=== PATIENT | male | born 1975 | race Caucasian/White ===

== ENCOUNTER 2017-04-10 17:42 | Emergency (ER) | payer BC ==
[~2017-04-10] VITALS: Ht 190.5 cm; Wt 88.5 kg
[~2017-04-10 17:42] MED LIST: KEFLEX 500MG.500 MG PO; LORTAB 5/500 501 TAB PO; NAPROSYN 500MG500 MG PO; VALIUM 5MG TABLE5 MG PO
--- OUTSIDE RECORDS SUMMARY | 2017-04-10 17:49 | External Medical Summary Rpt | CCD ---
Author Author YUDELKA Address Unknown Phone [email or web address] Purpose Continuity of Care Document - through 2016
--- OUTSIDE RECORDS SUMMARY | 2017-04-10 17:49 | External Medical Summary Rpt | CCD ---
Demographics Preferred Language Bel[place] Marital Status Unknown Buddhist Affiliation Unknown Race Unknown Ethnic Group Unknown Author Author , YUDELKA JHA Address Unknown Phone Immunization No patient found.
--- OUTSIDE RECORDS SUMMARY | 2017-04-10 17:49 | External Medical Summary Rpt | CCD ---
Author Author [facility] Organization [facility] Address Unknown Phone Unavailable Purpose Continuity of Care Document - through 2016
--- OUTSIDE RECORDS SUMMARY | 2017-04-10 17:49 | External Medical Summary Rpt | CCD ---
Demographics Preferred Language Vincentian Marital Status Unknown Yazdanism Affiliation Unknown Race Unknown Ethnic Group Unknown Author Author , YUDELKA JHA Address Unknown Phone Immunization No patient found.
--- OUTSIDE RECORDS SUMMARY | 2017-04-10 17:49 | External Medical Summary Rpt | CCD ---
Author Author YUDELKA Address Unknown Phone [email or web address] Purpose Continuity of Care Document - through 2016
--- NOTE | 2017-04-10 18:18 | Urgent Treatment Center Report ---
History of Present Issue Date/Time Seen by Provider 04/10/17 1808 Visit Reason Pt arrived:Walked Presenting Problem:PT C/O HEAD CONGESTION, COUGH,FEVER, BODYACHES,CHILLS. Location if Accident: Onset of symptoms date/time:/ or onset unknown for:MEDICAL HX UNKNOWN Have you (or family members/close friends) recently traveled outside the [place]? N If Yes, where/when: Have you had exposure to infectious disease within the past month? TB? Other? Specify: Source patient, RN notes reviewed Exam Limitations no limitations Comment 41-year-old male presents for body aches, fever, green sputum, cough, nasal congestion, and sore throat for a few days. ALLERGIES Coded Allergies: MDX - Penicillin (PENICILLIN) (HIVES AND SWELLING OF TONGUE AND THROAT 03/08/11) History Medical History General CAD? No Angina: Yes [place]: No Hypertension? No Hyperlipidemia? No CHF? No DVT? No PE? No COPD? No Asthma? Yes Anemia? No GERD? No Gastric ulcers? No GI Bleed? No Hernia? No Thyroid Problems? No Hypothyroidism? No CVA? No Seizures? No Diabetes? Yes Insulin Dependent: No Insulin Pump: No Home FSBS? No Renal Insuffiency? No UTI? No Stones? No BPH? No GB Disease: No Nephritic Syndrome? No Asplenia? No Hepatitis? No Sickle Cell Disease? No Arthritis? No Migraines? No Cataracts? No Glaucoma? No MRSA? Yes HIV? No TB? No Anxiety? No Depression? No Cancer? No More? No Immunization HX DT/Tetanus 03/08/11 Surgical Hx Previous Surgery?Y RECONSTUCTIVE RT HAND WISDOM TEETH REMOVED COLONOSCOPY BACK SURGERY ENDOSCOPY Social History Smoking Hx Smoker: Current Every Day Smoker Tobacco: Yes Type Cigarettes Packs/day < 1 Pack Alcohol Alcohol: No Review of Systems All Other Systems Reviewed and Negative Physical Exam Vital Signs Vital Signs Date Time Temp Pulse Resp B/P Pulse O2 O2 Flow FiO2 Ox Delivery Rate 04/10 1756 99.8 100 20 125/83 99 General Appearance normal appearance, no apparent distress Eye Exam - bilateral eye normal exam, bilateral eye PERRL, bilateral eye EOMI Ear, Nose, Throat hearing grossly normal Neck normal inspection, full range of motion Respiratory Status Yes: trachea midline, chest symmetrical, non tender chest. No: respiratory distress. Lung Sounds anterior: normal breath sounds, lungs clear. posterior: normal breath sounds, lungs clear, decreased breath sounds. left: decreased breath sounds, rhonchi. right: normal breath sounds, lungs clear. Cardiovascular normal exam, regular rate/rhythm Peripheral Pulses Pulses normal No Gastrointestinal normal bowel sounds Neurologic alert, normal exam, oriented x 3 Medical Decision Making LABS/Meds/Orders Pt receiving controlled substance in ED? No Results/Orders Current Medication Orders Sig/David Start time Last Medication Dose Route Stop Time Status Admin Ceftriaxone Sodium 1 GM ONCE ONE 04/10 1815 DC IM 04/10 1816 Dexamethasone Sodium 4 MG ONCE ONE 04/10 1815 DC 04/10 Phosphate IM 04/10 Lidocaine HCl 0 ONCE ONE 04/10 1815 DC IM 04/10 1816 Ceftriaxone Sodium 0 .STK-MED ONE 04/10 1812 DC .ROUTE Dexamethasone Sodium 0 .STK-MED ONE 04/10 1812 DC Phosphate .ROUTE Lidocaine HCl 0 .STK-MED ONE 04/10 1812 DC .ROUTE Departure Departure Time of Disposition 1811 Disposition DC Home or Self Care(routine) Clinical Impression Primary Impression: Acute bronchitis Qualifiers: Bronchitis organism: other organism Qualified Code: J20.8 - Acute bronchitis due to other specified organisms Condition STABLE Referrals Dee Dee Anderson APRN (Family): 2 Days-Call Office Patient Instructions Acute Bronchitis, DI for Acute Bronchitis Additional Instructions Medication as ordered If symptoms worsen or do not improve return or be seen in ER follow up in office weds Increase fluids, Tylenol or Motrin as needed for pain or fever Discharge Counseling Counseled pt/family regarding diagnosis, medications/RX, home care, follow up needs Prescriptions Current Visit Scripts Azithromycin (Zithromax) 250 MG PO DAILY #6 TAB USE DIRECTED. at 1826
[2017-04-10] MEDS ORDERED: ZITHROMAX Z-PA250 M2 PO (18:25)
[2017-04-10 18:30] VITALS: BP 125/83
== END 2017-04-10 18:33 | disposition home or self-care (01) ==
LOC: UTC 17:42
DX: J20.8 Acute bronchitis due to other specified organisms (principal); E11.9 Type 2 diabetes mellitus without complications; F17.210 Nicotine dependence, cigarettes, uncomplicated; J45.909 Unspecified asthma, uncomplicated; Z88.0 Allergy status to penicillin